=== PATIENT | female | born 1990 | race African-American/Black ===

== ENCOUNTER 2016-09-06 19:51 | Emergency (ER) | payer SELFPAY ==
[~2016-09-06] VITALS: Ht 162.6 cm; Wt 49.9 kg
[2016-09-06] MEDS ORDERED: IV NS 0.9% 1,000 ML BAG IV ONE (20:00)
[2016-09-06] MEDS ORDERED: OLANZAPINE 10 MG VIAL IM ONE ×2 (20:00→20:08)
[2016-09-06] MEDS ORDERED: LORAZEPAM INJ 2 MG/ML VIAL IM ONE (20:00)
--- NOTE | 2016-09-06 20:05 | NUR ---
pt [place] [facility] to [facility] bed 15. per report, pt was seen passed out in the middle of the street. when approached by pd pt started to act erratic, running through traffic. pt is agitated, verbally abusive. on 4 pt restraint upon arrival. placed on monitor. stable vitals. awaiting md [place].
--- NOTE | 2016-09-06 20:07 | NUR ---
dr dotson at bedside for eval.
[2016-09-06] MEDS ORDERED: LORAZEPAM INJ 2 MG/ML VIAL ONE (20:08)
[2016-09-06] MEDS ORDERED: WATER FOR INJECTION,STERILE 10 ML ONE (20:08)
--- NOTE | 2016-09-06 20:10 | NUR ---
iv line started blood drawn and sent to lab.
[2016-09-06 20:16] LABS: BASOPHILS # (AUTO) 0.1 /CMM (0.0-0.2); BASOPHILS % (AUTO) 1.7 % (0.0-2.0); EOSINOPHILS % (AUTO) 0.5 % (0.0-6.0); HEMATOCRIT 35 % (33-45); HEMOGLOBIN 11.6 g/dL (11.5-14.8); LYMPHOCYTES # (AUTO) 2.2 /CMM (0.8-4.8); MEAN CORPUSCULAR HEMOGLOBIN 27 PG (26.0-33.0); MEAN CORPUSCULAR HGB CONC 33 g/dl (31.0-36.0); MEAN CORPUSCULAR VOLUME 82 fL (82-100); MONOCYTES # (AUTO) 0.4 /CMM (0.1-1.30); MONOCYTES % (AUTO) 8.8 % (2.0-12.0); NEUTROPHILS # (AUTO) 1.7 /CMM (1.8-8.9); PLATELET COUNT (AUTO) 358 /CMM (150-450); RED BLOOD CELL COUNT(AUTO) 4.31 MIL/uL (4.0-5.2); WHITE BLOOD COUNT (AUTO) 4.4 K/uL (4.3-11.0)
[2016-09-06 20:22] LABS: CALCIUM, SERUM 8.9 mg/dL (8.5-10.1); CARBON DIOXIDE 23 mmol/L (21-32); CHLORIDE 109 mmol/L (98-107); CREATININE 1.2 mg/dL (0.6-1.3); GLUCOSE 81 mg/dL (74-106); POTASSIUM 3.3 mmol/L (3.5-5.1); SODIUM SERUM 145 mmol/L (136-145); UREA NITROGEN, BLOOD 7 mg/dL (7-18)
[2016-09-06 20:28] LABS: ACETAMINOPHEN < 2 ug/ml (10-30); ALANINE AMINOTRANSFERASE 30 U/L (12-78); ALBUMIN 4.2 g/dL (3.4-5.0); ALCOHOL, BLOOD 109 mg/dL (0-0); ALKALINE PHOSPHATASE 55 U/L (46-116); ASPARTATE AMINOTRANSFERASE 38 U/L (15-37); BILIRUBIN,DIRECT 0.2 mg/dL (0.0-0.2); BILIRUBIN,TOTAL 0.9 mg/dL (0.2-1.0); SALICYLATE < 0.2 mg/dL (2.8-20.0); TOTAL PROTEIN, SERUM 8.1 g/dL (6.4-8.2)
[2016-09-06 21:12] LABS: APPEARANCE,URINE Slightly Cloudy (CLEAR); BILIRUBIN,URINE SMALL (NEGATIVE); BLOOD, URINE Trace-intact Ery/uL (NEGATIVE); COLOR,URINE Dark (YELLOW); KETONES,URINE 15 (NEGATIVE); LEUKOCYTE ESTERASE ,URINE Negative (NEGATIVE); NITRITE, URINE Negative (NEGATIVE); PROTEIN,URINE 100 mg/dl (NEGATIVE); UGLUCOSE Negative (NEGATIVE)
[2016-09-06 21:23] LABS: BACTERIA,URINE Rare /HPF (None Seen); SQUAMOUS EPITHELIAL CELL,UR Few /HPF (None Seen); WBC,URINE 0-2 /HPF (0-3)
--- NOTE | 2016-09-06 21:54 | NUR ---
pt is sleeping. on monitor w/ stable vitals. will cont to monitor.
--- NOTE | 2016-09-06 23:30 | NUR ---
pt is sleeping, restraints discontinuied. stable vitals. will continue to monitor.
--- NOTE | 2016-09-07 05:28 | NUR ---
pt sleeping in [place]. no signs of distress noted. pt vital signs stable. will cont to monitor pt.
--- NOTE | 2016-09-07 10:57 | NUR ---
PT IS ALERT AND ORIENTED, AMBULATORY WITH STEADY GAIT. DENIES SI OR HI
--- NOTE | 2016-09-07 10:57 | NUR ---
PT. VERBALIZED UNDERSTANDING OF AFTERCARE INSTRUCTIONS.Patient discharged to home in stable condition. Written and verbal after care instructions given. Patient verbalizes understanding of instruction.
[2016-09-07 11:00] VITALS: BP 131/75
== END 2016-09-07 11:00 | disposition home or self-care (01) ==
LOC: ER 19:52
DX: F11.10 Opioid abuse, uncomplicated (principal); F15.10 Other stimulant abuse, uncomplicated; F14.10 Cocaine abuse, uncomplicated; F12.10 Cannabis abuse, uncomplicated; R46.89 Other symptoms and signs involving appearance and behavior
CPT/HCPCS: 36415; 80048-TC; 80076-TC; 80305; 81000-TC; 84703-TC; 85025-TC; A4606; G0480; J2060; J3490; Z7610

== ENCOUNTER 2016-11-20 11:40 | Emergency (ER) | payer OTHER ==
[~2016-11-20] VITALS: Ht 162.6 cm; Wt 65.3 kg
[2016-11-20 11:40] VITALS: BP 136/72
== END 2016-11-20 13:24 ==
LOC: ER 11:41
DX: Z02.89 Encounter for other administrative examinations (principal); Y04.0XXA Assault by unarmed brawl or fight, initial encounter; Y92.89 Other specified places as the place of occurrence of the external cause; Y93.89 Activity, other specified; Y99.8 Other external cause status
CPT/HCPCS: A4606; Z7610